=== PATIENT | female | born 2000 | race Caucasian/White ===

== ENCOUNTER 2023-03-02 14:00 | Emergency (ER) | payer OTHER, SELFPAY ==
--- NOTE | ~2023-03-02 | XR_ITS ---
EXAMINATION: Lumbar spine and sacrum x-ray CLINICAL INFORMATION: Fall COMPARISON: None. TECHNIQUE: 3 views of the lumbar sacral spine and 3 views of the sacrum FINDINGS: Lumbar sacral spine: Bone alignment is normal. No fracture or dislocation. Normal disc spaces. There is sacralization of the left L5 transverse process. Normal paraspinal soft tissues. Sacrum: No sacrum or coccyx fracture. Sacroiliac joints are normal. XR/XR sacrum coccyx min 2V IMPRESSION: No fracture or dislocation seen.
--- NOTE | ~2023-03-02 | XR_ITS ---
EXAMINATION: Lumbar spine and sacrum x-ray CLINICAL INFORMATION: Fall COMPARISON: None. TECHNIQUE: 3 views of the lumbar sacral spine and 3 views of the sacrum FINDINGS: Lumbar sacral spine: Bone alignment is normal. No fracture or dislocation. Normal disc spaces. There is sacralization of the left L5 transverse process. Normal paraspinal soft tissues. Sacrum: No sacrum or coccyx fracture. Sacroiliac joints are normal. XR/XR lumbar spine 2-3V IMPRESSION: No fracture or dislocation seen.
[2023-03-02 14:29] VITALS: BP 113/81; PULSE 100; RESP 18; TEMP 36.3; O2SAT 99; BMI 41.1
--- NOTE | 2023-03-02 14:29 | ED.GENADULT ---
HPI - General Adult General Chief complaint: Back Pain/Injury Stated complaint: tailbone pain/ fall 03/01 Time Seen by Provider: 03/02/23 16:31 Source: patient, RN notes reviewed and old records reviewed Mode of arrival: ambulatory Limitations: no limitations History of Present Illness HPI narrative: 22-year-old female presents for evaluation of lower back and tailbone pain. Patient reports that she slipped down the stairs and landed on her buttocks. She fell approximately 4 steps. Denies hitting her head or losing consciousness She complains of 8/10 pain to her buttocks area Denies numbness or tingling No other complaints or concerns Related Data Previous Rx's Medication Instructions Recorded naproxen 500 mg tablet 500 mg PO BID PRN pain #20 tabs 03/02/23 tramadol 50 mg tablet 50 mg PO Q8H PRN pain #12 tabs 03/02/23 Allergies Allergy/AdvReac Type Severity Reaction Status Date / Time No Known Allergies Allergy Verified 03/02/23 14:30 Review of Systems Constitutional: Constitutional: Denies headache(s) ENT: Denies headache(s) Cardiovascular: Cardiovascular: Denies chest pain and Denies syncope Musculoskeletal: Musculoskeletal: Reports back pain Neurologic: Denies syncope and Denies headache(s) PMFSH Social History Social History Advance Directives: No Advance Directives Information Provided: No Physical Exam ED Vital Signs: Vital Signs - 24 hr 03/02/23 14:29 Temperature 97.4 F Pulse Rate 100 Respiratory Rate 18 Blood Pressure 113/81 Pulse Oximetry 99 Oxygen Delivery Method Room Air BMI result Body Mass Index 41.1 Const General: healthy appearing, comfortable, no acute distress, alert and awake Nutritional Appearance: well nourished Orientation/consciousness: patient oriented x3 HENMT Head: Yes normocephalic and Yes atraumatic Throat: Yes posterior oropharynx normal Eyes Eyelids: Yes eyelids normal Conjunctivae: conjunctivae normal Sclerae: sclerae normal Corneas: corneas normal Pupils: Equal, round and reactive pupils present EOM: EOMs intact bilaterally Neck Neck: Yes full ROM Resp Effort & Inspection: normal respiratory effort, able to speak in complete sentences and not labored Back/Spine/Pelvis Other: Mild lumbar vertebral tenderness. Skin General skin exam: elasticity normal Neuro General: patient oriented x3 Cranial nerves: Yes Equal, round and reactive pupils present and Yes Bilaterally intact EOM present Cognition (Neuro): normal cognition Extrem Other: Moving all extremities well without any obvious deformities Course Course Course Narrative: RME- 22 year old female presents for evaluation of lower back, tailbone pain after a fall down 4 stairs a few hours ago Medical Decision Making Medical Decision Making MDM Narrative: Patient fell a few hours ago complaining of lower back pain. No red flags for cauda equina syndrome. Will get x-rays of the sacrum/coccyx as well as lumbar spine. Differential Diagnosis Differential Diagnoses: The differential diagnosis associated with the presentation includes Back pain Vertebral fracture Tailbone fracture Muscle strain Radiculopathy Independent Interpretation I performed an independent interpretation of an: Plain X-Ray (No obvious fracture of the sacrum or lumbar spine) Radiology Impression Discussion of test interpretation with radiology: I have reviewed the radiologist's reading. (No lumbar vertebral fracture, normal coccyx/sacrum fracture) Discharge Plan Discharge Clinical Impression: Lower back pain Patient Disposition: Home, Self-Care Instructions: Back Pain (ED) Prescriptions: New naproxen 500 mg tablet 500 mg PO BID PRN (Reason: pain) Qty: 20 0RF tramadol 50 mg tablet 50 mg PO Q8H PRN (Reason: pain) Qty: 12 0RF Stand Alone Forms: Work/School Release Interventions: ED Discharge Assessment Last Done: 03/02/23 16:40
== END 2023-03-02 16:41 | disposition home or self-care (01) ==
LOC: HO.ED 16:40
PROVIDERS: Emergency Provider Student in an Organized Health Care Education/Training Program
DX: S39.92XA Unspecified injury of lower back, initial encounter (principal); M54.50 Low back pain, unspecified; M53.3 Sacrococcygeal disorders, not elsewhere classified; X58.XXXA Exposure to other specified factors, initial encounter; Y93.9 Activity, unspecified; Y92.9 Unspecified place or not applicable; Y99.9 Unspecified external cause status
CPT/HCPCS: 72100; 72220; 99282; 99283

== ENCOUNTER 2023-09-30 08:21 | Emergency (ER) | payer OTHER, SELFPAY ==
[2023-09-30 08:36] VITALS: BP 113/69; PULSE 86; RESP 18; TEMP 36.9; O2SAT 99; BMI 40.7
--- NOTE | 2023-09-30 09:04 | ED_ITS ---
HPI - General Adult General Chief complaint: Wound/Laceration Stated complaint: cut on hand Time Seen by Provider: 09/30/23 09:21 Source: patient Mode of arrival: ambulatory Limitations: no limitations History of Present Illness ED Provider: Angela Henriquez PA-C HPI narrative: This is a 23 yo female no known pmh presents with laceration to right palm after a cut she sustained using a new knife to open a medication. The laceration is on the plam just below the thumb, bleeding well controlled. Patient reports this was a brand new knife set, however unknown tetanus status. Patient reports warmth and intermittent tingling in her palm radiating up her arm and stopping at her elbow which began at the time of injury and is still present now ( comes and goes) Denies weakness, numbness, fever, chills, chest pain, sob. Patient reports she still has full rom, just discomfort due to pain. Related Data Previous Rx's ?Medication ?Instructions ?Recorded naproxen 500 mg tablet 500 mg PO BID PRN pain #20 tabs 03/02/23 tramadol 50 mg tablet 50 mg PO Q8H PRN pain #12 tabs 03/02/23 Allergies Allergy/AdvReac Type Severity Reaction Status Date / Time No Known Allergies Allergy Verified 09/30/23 08:37 Review of Systems Review of Systems: Yes all other systems are reviewed and are negative [facility] Past Medical History Attestation statement: The following information was validated with the patient. Source: old records reviewed and nursing notes reviewed Social History Social History Advance Directives: No Advance Directives Information Provided: No Physical Exam ED Vital Signs: Vital Signs - 24 hr 09/30/23 08:36 Temperature 98.4 F Pulse Rate 86 Respiratory Rate 18 Blood Pressure 113/69 Pulse Oximetry 99 Oxygen Delivery Method Room Air BMI result Body Mass Index 40.7 vss. Appearance: Alert.? Oriented X3.? No acute distress.? Head: Normocephalic, atraumatic, no step-offs or deformities Eyes: Pupils equal, round and reactive to light.? Neck: Normal inspection.? Neck supple.? CVS: Normal heart rate and rhythm.? Pulses normal.? Respiratory: No respiratory distress.? Breath sounds normal.? Abdomen: Soft and nontender.? Skin: Skin warm and dry.? Normal skin color.? Normal skin turgor.? Extremities: Linear 1 cm laceration to right palm, just below thumb, bleeding well controlled. 2+ radial, brachial, and ulnar pulses equal and symmetric bilaterally. Full ROM to right hand and digits with mild discomfort due to pain. 5/5 strength to bilateral upper and lower extremities Neuro: Oriented X 3.? No motor deficit.? No sensory deficit. CN 2-12 intact Course Reevaluation(s) Reevaluation #1: Lac repaired w/ dermabond after it was cleaned well. Edges well approximated. Educated patient on diagnosis and treatment plan, answered all question, patient verbalizes understanding. At this time patient will be discharged home, advised to return with new or worsening symptoms. Educated on worrisome signs and symptoms and when to return. At this time I feel comfortable discharge home. Time: 09:35 Medical Decision Making Medical Decision Making [facility] Narrative: 899 23 yo female presenting with 1 cm laceraton to right palm just below the thumb after a cut sustained with a brand new knife while trying to open a medication. PE: Extremities: Linear 1 cm laceration to right palm, just below thumb, bleeding well controlled. 2+ radial, brachial, and ulnar pulses equal and symmetric bilaterally. Full ROM to right hand and digits with mild discomfort due to pain. 5/5 strength to bilateral upper and lower extremities Differential: Right palmar laceration. Unlikely threat to limb, tendon laceration, necrotizing infection, fx, dislocaiton or nerve injury Plan: repair w/ glue Differential Diagnosis Differential Diagnoses: The differential diagnosis associated with the presentation includes (Differential: Right palmar laceration. Unlikely threat to limb, tendon laceration, necrotizing infection, fx, dislocaiton or nerve injury ) Admission/Observation Consideration of admission/observation: Escalation of care including admission/observation considered (Unlikely) External Record Review External record reviewed: Outpatient record Chronic Conditions Patient?s care impacted by: Other (obesity ) Discharge Plan Discharge Clinical Impression: Laceration Patient Disposition: Home, Self-Care Additional Instructions: Take your medications as prescribed. If you were prescribed antibiotics today, it is important that you take your medication to their entirety, do not skip any doses, do not finish them early. Follow-up with your primary care provider this week. Return to the emergency department with new or worsening symptoms. Such as fevers, chills, chest pain, shortness of breath, nausea, vomiting, dizziness, headache, vision changes, lethargy In case of emergency call 911 Prescriptions: No Action naproxen 500 mg tablet 500 mg PO BID PRN (Reason: pain) Qty: 20 0RF tramadol 50 mg tablet 50 mg PO Q8H PRN (Reason: pain) Qty: 12 0RF Referrals: Physician,Unknown J [Primary Care Provider] - 2 days Print Language: Spanish
[2023-09-30 09:55] VITALS: BP 113/69; PULSE 86; RESP 18; TEMP 36.9; O2SAT 99
== END 2023-09-30 09:55 | disposition home or self-care (01) ==
PROVIDERS: Emergency Provider Emergency Medicine
DX: S61.411A Laceration without foreign body of right hand, initial encounter (principal); W26.0XXA Contact with knife, initial encounter; Y93.89 Activity, other specified; Y92.009 Unspecified place in unspecified non-institutional (private) residence as the place of occurrence of the external cause; Y99.9 Unspecified external cause status
CPT/HCPCS: 12001; 99282

== ENCOUNTER 2023-10-17 07:58 | Emergency (ER) | payer OTHER, SELFPAY ==
[2023-10-17 08:02] VITALS: BP 132/79; PULSE 105; RESP 19; TEMP 36.1; O2SAT 99; BMI 40.7
[2023-10-17 08:27] LABS: IDNOW Serial# 08D9AD1C; Strep A Nucleic Acid Negative (Negative)
--- NOTE | 2023-10-17 08:47 | ED.GENADULT ---
HPI - General Adult General Chief complaint: Upper Respiratory Symptoms Stated complaint: drainage from eyes vomiting Time Seen by Provider: 10/17/23 08:15 Source: patient and family (Spouse is here for evaluation of similar symptoms.) Mode of arrival: ambulatory Limitations: no limitations History of Present Illness ED Provider: DR. Mcclellan HPI narrative: 23-year-old female came in for evaluation of generalized body ache, sore throat, right ear pain, subjective fever, bilateral eye discharge. Patient started to have symptoms after was exposed to her had similar symptoms and who is also here for evaluation. Related Data Previous Rx's ?Medication ?Instructions ?Recorded naproxen 500 mg tablet 500 mg PO BID PRN pain #20 tabs 03/02/23 tramadol 50 mg tablet 50 mg PO Q8H PRN pain #12 tabs 03/02/23 amoxicillin 875 mg-potassium 1 tab PO BID #14 tabs 10/17/23 clavulanate 125 mg tablet erythromycin 5 mg/gram (0.5 %) eye 0.5 inch ophthalmic (eye) QID #3.5 10/17/23 ointment grams Allergies Allergy/AdvReac Type Severity Reaction Status Date / Time No Known Allergies Allergy Verified 10/17/23 08:03 Review of Systems Review of Systems: All other systems are reviewed and are negative Constitutional: Reports as per HPI and Reports no additional constitutional complaints Eyes: Reports as per HPI and Reports no additional eye complaints Reports system reviewed and no additional complaints, except as documented Cardiovascular: Reports as per HPI and Reports no additional cardiovascular complaints Respiratory: Reports as per HPI and Reports no additional respiratory complaints Gastrointestinal: Reports as per HPI and Reports no additional gastrointestinal complaints Genitourinary: Reports no additional female genitourinary complaints Musculoskeletal: Reports no additional musculoskeletal complaints Skin/Breast: Reports system reviewed and no additional complaints, except as docu Psychiatric: Reports no additional psychiatric complaints Endocrine: Reports no additional endocrine complaints Hematologic/Lymphatic: Reports no additional hematologic/lymphatic complaints Allergic/Immunologic: Reports no additional allergic/immunologic complaints Reports system reviewed and no additional complaints, except as documented and Reports Abnormal speech present [facility] Social History Social History Advance Directives: No Advance Directives Information Provided: No Physical Exam ED Vital Signs: Vital Signs - 24 hr 10/17/23 08:02 Temperature 97 F Pulse Rate 105 H Respiratory Rate 19 Blood Pressure 132/79 Pulse Oximetry 99 Oxygen Delivery Method Room Air BMI result Body Mass Index 40.7 Vital signs have been reviewed and appear to be correct. Blood pressure elevated. Heart rate normal. Respiratory rate normal. Temperature normal. Oxygen saturation normal. Appearance: Alert. Oriented X3. No acute distress. Head: Normal external exam. Normocephalic. Atraumatic. No Harris signs noted. No raccoon eyes noted Eyes: PERRLA. EOMI. Bilateral conjunctiva injection.. Eyelids normal. ENT: Right TM erythema, Uvula midline. Moist mucous membranes. No trismus noted. No drooling noted. No muffled voice noted. Neck: Normal inspection. Neck supple. FROM. No adenopathy. Thyroid Normal. No meningeal signs. No neck mass noted. CVS: Normal heart rate and rhythm. Heart sound normal. No murmurs noted. Pulses normal throughout. Respiratory: No respiratory distress. Painless inspiration. Breath sounds normal. No wheezes/rales/rhonchi noted. Chest nontender. No accessory muscle usage noted or decreased air movement noted. Abdomen: Soft and nontender. Bowel sounds normal in all 4 quadrants. No distention noted. No organomegaly noted. No visible injury noted. Back: No CVA tenderness. Full range of motion noted. Skin: Skin warm and dry. Normal skin color. Normal skin turgor. No rashes/lesions/lacerations noted. Extremities: No lower extremity edema. Extremities exhibit normal range of motion. Extremities nontender. Neuro: Oriented X 3. Cranial nerve exam: II-XII are grossly intact No motor deficit. No sensory deficit. Reflexes normal. Course Reevaluation(s) Reevaluation #1: Upper respiratory infection with right ear otitis media with conjunctivitis. Start the patient on Augmentin, erythromycin for conjunctivitis, NSAIDs if needed for pain and body ache. Time: 08:51 Medical Decision Making Differential Diagnosis Differential Diagnoses: The differential diagnosis associated with the presentation includes (Viral pharyngitis, bacterial pharyngitis, conjunctivitis, otitis media.) Admission/Observation Consideration of admission/observation: Escalation of care including admission/observation considered Lab Data MDM Lab Attestation statement: I reviewed the patient's lab results. Labs: Lab Results 10/17/23 Range/Units 08:08 S. pyogenes GrpA DEVAN Negative (Negative) Discharge Plan Discharge Clinical Impression: Conjunctivitis, Otitis media Patient Disposition: Home, Self-Care Instructions: Ear Infection (ED), Conjunctivitis (ED) Prescriptions: New erythromycin 5 mg/gram (0.5 %) ointment 0.5 inch ophthalmic (eye) QID Qty: 3.5 0RF amoxicillin-pot clavulanate 875-125 mg tablet 1 tab PO BID Qty: 14 0RF No Action naproxen 500 mg tablet 500 mg PO BID PRN (Reason: pain) Qty: 20 0RF tramadol 50 mg tablet 50 mg PO Q8H PRN (Reason: pain) Qty: 12 0RF Print Language: Divehi
[2023-10-17] MEDS: Erythromycin Base 0.5% Oph Oin 1 GM TUBE 1 CM EYE-BOTH (09:23)
[2023-10-17] MEDS: Ibuprofen 600 MG TABLET PO (09:23)
[2023-10-17] MEDS: Amoxicillin/Potassium Clav 875 MG TABLET PO (09:24)
[2023-10-17 09:32] LABS: Influenza A PCR NEGATIVE (Negative); Influenza B PCR NEGATIVE (Negative); Resp Syncy Virus RNA Qual PCR NEGATIVE (Negative); SARS COV2 PCR INHOUSE NEGATIVE (Negative)
[2023-10-17 09:52] VITALS: BP 132/79; PULSE 105; RESP 19; TEMP 36.1; O2SAT 99
== END 2023-10-17 09:53 | disposition home or self-care (01) ==
PROVIDERS: Emergency Provider Emergency Medicine
DX: H10.9 Unspecified conjunctivitis (principal); H66.91 Otitis media, unspecified, right ear; J02.9 Acute pharyngitis, unspecified; H92.01 Otalgia, right ear; Z79.899 Other long term (current) drug therapy
CPT/HCPCS: 0241U; 87651; 99283